=== PATIENT | female | born 1940 | race Two or more races ===

== ENCOUNTER 2024-08-13 15:37 | Emergency (ER) | payer OTHER ==
[~2024-08-13] VITALS: Ht 149.9 cm; Wt 54.4 kg
[2024-08-13] MEDS ORDERED: OxyCODONE HCL/APAP UD (PERCOCET) PO ONE (19:30)
[2024-08-13] MEDS ORDERED: KETO10TA2 PO (19:45)
[2024-08-13] MEDS ORDERED: KETOROLAC TROMETHAMINE 30 MG VIAL IM ONE ×2 (19:45→20:00)
== END 2024-08-13 20:29 | disposition home or self-care (01) ==
LOC: ER 15:38
DX: S01.81XA Laceration without foreign body of other part of head, initial encounter (principal); W19.XXXA Unspecified fall, initial encounter; Y93.89 Activity, other specified; Y92.488 Other paved roadways as the place of occurrence of the external cause; Y99.8 Other external cause status; T07.XXXA Unspecified multiple injuries, initial encounter; Z88.5 Allergy status to narcotic agent
CPT/HCPCS: 12011; 70450; 70490; 71250; 96372; 99284; J1885